=== PATIENT | female | born 1935 | race Caucasian/White ===

== ENCOUNTER 2017-10-16 12:49 | Inpatient (IN) | payer OTHER ==
[~2017-10-16] VITALS: Ht 165.1 cm; Wt 88.0 kg
[~2017-10-16 12:49] MED LIST: ACETAMINOPHEN-1 EAC1 PO; ALPRAZOLAM0.5 MG PO; ASCORBIC ACID500 M3 PO; ASPIRIN81 M2 PO; BISOPROLOL-HCT1 EACH PO; CIPROFLOXACIN250 MG PO; FOLIC ACID1 MG PO; LEXAPRO10 MG PO; LISINOPRIL10 MG PO; LOPRESSOR50 MG PO; NITROSTAT0.4 MG SL; NORCO 5/3251 TABLET PO; SENNA-TIME S T1 EACH PO; SIMVASTATIN20 MG PO; THERAGRAN1 TABLET PO
[2017-10-16 14:38] LABS: APPEARANCE SL.HAZY ((CLEAR)); BILIRUBIN NEGATIVE; BLOOD SMALL; COLOR YELLOW ((YELLOW)); GLUCOSE (STRIP) NEGATIVE; KETONES NEGATIVE; LEUKOCYTES LARGE; NITRITE NEGATIVE; PROTEIN (STRIP) NEGATIVE; SPECIFIC GRAVITY 1.009 (1.000-1.030); UROBILINOGEN 0.2 MG/DL (0.2-1.0)
[2017-10-16 14:42] LABS: BASOPHIL (%) 0.4 % (0-1); BASOPHIL COUNT 0.1 K/uL (0-0.1); EOSINOPHIL (%) 1.2 % (0-5); EOSINOPHIL COUNT 0.1 K/uL (0-0.3); HEMOGLOBIN 12.7 G/DL (11.9-15.5); IMMATURE GRANULOCYTE (%) 0.3 % (0.0-0.7); LYMPHOCYTE (%) 19.5 % (15-42); LYMPHOCYTE COUNT 2.3 K/uL (1.0-2.8); MCHC 32.6 G/DL (30.0-36.0); MCV 98.2 FL (83-99); MONOCYTE (%) 6.7 % (3-12); MONOCYTE COUNT 0.8 K/uL (0-0.8); NEUTROPHIL (%) 71.9 % (45-76); NEUTROPHIL COUNT 8.3 K/uL (1.8-6.4); PLATELET COUNT 306 K/uL (156-360); RBC DIS.WIDTH-CV 14.7 % (11.8-14.6); RBC DIS.WIDTH-SD 53.2 % (39-53); RED BLOOD COUNT 3.97 M/uL (3.80-5.20); WHITE BLOOD COUNT 11.6 K/uL (4.1-10.2)
[2017-10-16 14:42] LABS: BACTERIA 1+ /HPF; EPITHELIAL CELLS RARE /HPF; MUCUS TRACE /LPF; RED BLOOD CELLS 0-5 /HPF (0-5); UCUL ADDED? YES; WHITE BLOOD CELLS TNTC /HPF (0-5)
[2017-10-16 14:56] LABS: ALBUMIN 3.9 g/dL (3.2-4.8); CHLORIDE 108 mEq/L (99-109); POTASSIUM 4.2 mEq/L (3.7-5.4); SODIUM 138 mEq/L (136-147)
[2017-10-16 14:58] LABS: GLUCOSE 111 mg/dL (70-99); TOTAL PROTEIN 6.9 g/dL (6.4-8.3)
[2017-10-16 15:00] LABS: TOTAL BILIRUBIN 0.7 mg/dL (0.0-1.0)
[2017-10-16 15:02] LABS: ALKALINE PHOSPHATASE 73 IU/L (3-129); CREATININE 1.3 mg/dL (0.6-1.3); GFR ESTIMATE (CALCULATED) 42 mL/min/
[2017-10-16 15:03] LABS: TROP-I INTERPRETATION NEGATIVE; TROPONIN-I 0.01 ng/mL (0.0-0.30); UREA NITROGEN (BUN) 24 mg/dL (9-23)
[2017-10-16 15:04] LABS: AST (GOT) 37 IU/L (2-34)
[2017-10-16 15:05] LABS: ALT (GPT) 36 IU/L (3-49)
[2017-10-16] MEDS ORDERED: LOPRESSOR25 MG PO (16:55)
[2017-10-16] MEDS ORDERED: TRAMADOL HCL50 MG PO (16:56)
[2017-10-16] MEDS ORDERED: TRAZODONE HCL50 MG PO (16:57)
[2017-10-16] MEDS ORDERED: ERGOCALCIF50000 UNIT PO (16:57)
[2017-10-16] MEDS ORDERED: LISINOPRIL20 MG PO (16:58)
[2017-10-16] MEDS ORDERED: VITAMIN B12 100MCG PO (17:03)
[2017-10-16 18:30] LABS: MAGNESIUM 2.3 mg/dL (1.3-2.7)
[2017-10-16 18:35] LABS: PHOSPHORUS 4.4 mg/dL (2.5-4.9)
[2017-10-16 23:14] VITALS: BP 132/57
[2017-10-17 01:12] LABS: TROP-I INTERPRETATION NEGATIVE; TROPONIN-I 0.02 ng/mL (0.0-0.30)
[2017-10-17 03:51] VITALS: BP 107/57
[2017-10-17 05:42] LABS: HEMATOCRIT 39.6 % (36.0-46.0); HEMOGLOBIN 13.2 G/DL (11.9-15.5); MCH 31.4 PG (29.0-34.0); MCHC 33.3 G/DL (30.0-36.0); MCV 94.1 FL (83-99); PLATELET COUNT 293 K/uL (156-360); RBC DIS.WIDTH-CV 14.3 % (11.8-14.6); RBC DIS.WIDTH-SD 48.6 % (39-53); RED BLOOD COUNT 4.21 M/uL (3.80-5.20)
[2017-10-17 06:01] LABS: CHLORIDE 100 MEQ/L (99-109); CREATININE 1.2 MG/DL (0.6-1.3); GFR ESTIMATE (CALCULATED) 46 mL/min/; GLUCOSE 139 mg/dL (70-99); POTASSIUM 3.6 MEQ/L (3.7-5.4); SODIUM 139 MEQ/L (136-147); UREA NITROGEN (BUN) 26 mg/dL (9-23)
[2017-10-17 06:11] LABS: TROP-I INTERPRETATION NEGATIVE; TROPONIN-I 0.02 ng/mL (0.0-0.30)
[2017-10-17 08:47] VITALS: BP 158/75
[2017-10-17 11:48] VITALS: BP 125/71
[2017-10-17 15:35] VITALS: BP 147/61
[2017-10-17 19:10] VITALS: BP 177/68
[2017-10-18 00:36] VITALS: BP 105/60
[2017-10-18 08:05] VITALS: BP 109/67
[2017-10-18 11:22] VITALS: BP 102/74
[2017-10-18 12:55] LABS: CHLORIDE 100 MEQ/L (99-109); CREATININE 1.4 MG/DL (0.6-1.3); GFR ESTIMATE (CALCULATED) 38 mL/min/; GLUCOSE 134 mg/dL (70-99); POTASSIUM 4.3 MEQ/L (3.7-5.4); SODIUM 138 MEQ/L (136-147); UREA NITROGEN (BUN) 43 mg/dL (9-23)
[2017-10-18 15:52] VITALS: BP 155/71
[2017-10-18 18:50] VITALS: BP 104/58
[2017-10-18 21:57] VITALS: BP 93/50
[2017-10-19] VITALS (8 sets, daily range): BP systolic 110–178; BP diastolic 52–75
[2017-10-19 06:37] LABS: HEMOGLOBIN 13.8 G/DL (11.9-15.5); MCH 32.2 PG (29.0-34.0); MCHC 32.1 G/DL (30.0-36.0); PLATELET COUNT 230 K/uL (156-360); RBC DIS.WIDTH-CV 15.1 % (11.8-14.6); RBC DIS.WIDTH-SD 55.9 % (39-53); RED BLOOD COUNT 4.29 M/uL (3.80-5.20); WHITE BLOOD COUNT 8.2 K/uL (4.1-10.2)
[2017-10-19 06:43] LABS: MCV 100.2 FL (83-99)
[2017-10-19 06:54] LABS: CHLORIDE 101 MEQ/L (99-109); CREATININE 1.4 MG/DL (0.6-1.3); GFR ESTIMATE (CALCULATED) 38 mL/min/; MAGNESIUM 2.3 mg/dl (1.3-2.7); SODIUM 135 MEQ/L (136-147); UREA NITROGEN (BUN) 39 mg/dL (9-23)
[2017-10-19 06:57] LABS: GLUCOSE 86 mg/dL (70-99); POTASSIUM 5.2 MEQ/L (3.7-5.4)
[2017-10-20 03:30] VITALS: BP 101/55
[2017-10-20 05:56] LABS: CHLORIDE 103 MEQ/L (99-109); CREATININE 1.3 MG/DL (0.6-1.3); GFR ESTIMATE (CALCULATED) 42 mL/min/; GLUCOSE 97 mg/dL (70-99); POTASSIUM 4.4 MEQ/L (3.7-5.4); SODIUM 141 MEQ/L (136-147); UREA NITROGEN (BUN) 35 mg/dL (9-23)
[2017-10-20 07:32] VITALS: BP 173/77
[2017-10-20 11:30] VITALS: BP 144/65
[2017-10-20] MEDS ORDERED: FUROSEMIDE20 MG PO (11:50)
[2017-10-20] MEDS ORDERED: CIPRO500 MG PO (11:50)
== END 2017-10-20 14:39 | disposition home or self-care (01) | DRG 189 ==
LOC: EME 12:49 → EDOF 17:39 → ENRESERV 17:39 → 4EAST 17:39 → ENRESERV 18:27 → 4EAST 23:14 → ENPENDDIS 10-20 → 4EAST 10-20 14:39
PROVIDERS: Emergency Medicine; Hospitalist; Internal Medicine; Internal Medicine Cardiovascular Disease
DX: J96.01 Acute respiratory failure with hypoxia (principal); I11.0 Hypertensive heart disease with heart failure; J81.1 Chronic pulmonary edema; J44.1 Chronic obstructive pulmonary disease with (acute) exacerbation; Z96.641 Presence of right artificial hip joint; Z96.651 Presence of right artificial knee joint; N39.0 Urinary tract infection, site not specified; I25.10 Atherosclerotic heart disease of native coronary artery without angina pectoris; E78.5 Hyperlipidemia, unspecified; I50.23 Acute on chronic systolic (congestive) heart failure; Z98.41 Cataract extraction status, right eye; Z95.1 Presence of aortocoronary bypass graft; I27.20 Pulmonary hypertension, unspecified; B96.20 Unspecified Escherichia coli [E. coli] as the cause of diseases classified elsewhere; R79.89 Other specified abnormal findings of blood chemistry; M19.90 Unspecified osteoarthritis, unspecified site; E66.9 Obesity, unspecified; I77.819 Aortic ectasia, unspecified site; Z68.32 Body mass index [BMI] 32.0-32.9, adult; Z88.0 Allergy status to penicillin; I25.2 Old myocardial infarction
CPT/HCPCS: 71045; 71046; 80048; 80053; 81003; 83735; 83880; 84100; 84484; 85025; 85027; 87077; 87086; 87186; 93005; 93306; 94640; 94640 76; 94799; 99281; 99285; J0744; J1644; J1940; J1956; J2930